=== PATIENT | male | born 2000 | race Caucasian/White ===

== ENCOUNTER 2022-06-24 16:59 | Inpatient (IN) ==
[2022-06-24 18:28] LABS: Basophils # (auto) 0.04 K/uL (0-0.2); Basophils % (auto) 0.7 %; Eosinophils # (auto) 0.28 K/uL (0-0.50); Eosinophils % (auto) 4.8 %; Hematocrit (blood only) 46.7 % (40.1-51.0); Immature Granulocytes # (auto) 0.01 K/uL (0.00-0.02); Immature Granulocytes % (auto) 0.2 %; Lymphocytes # (auto) 2.25 K/uL (1.2-3.4); Lymphocytes % (auto) 38.9 %; Mean Corpuscular Hemoglobin 30.4 pg (25.0-34.0); Mean Corpuscular Hgb Conc 34.3 g/dL (32.0-36.0); Mean Corpuscular Volume 88.6 fL (80.0-100.0); Mean Platelet Volume 8.5 fL (9.4-12.4); Monocytes # (auto) 0.69 K/uL (0.24-0.82); Monocytes % (auto) 11.9 %; Neutrophils # (auto) 2.52 K/uL (1.4-6.5); Neutrophils % (auto) 43.5 %; Platelet Count 284 K/uL (130-400); RDW Coefficient of Variation 12.4 % (11.5-14.5); Red Blood Count 5.27 M/uL (4.63-6.08); White Blood Count 5.79 K/ul (4.8-10.8)
[2022-06-24 18:32] LABS: Appearance Urine Cloudy (Clear); Bacteria Urine Automated Negative (Negative); Bilirubin Urine Negative (Negative); Blood Urine Negative (Negative); Color Urine Yellow; Glucose Urine UA Negative (Negative); Ketones Urine Negative (Negative); Leukocyte Esterase Urine Negative (Negative); Nitrite Urine Negative (Negative); Protein Urine Negative (Negative); RBC Urine Automated 0-4 /hpf (0-4); Specific Gravity Urine 1.015 (1.000-1.030); Urobilinogen Urine Negative (Negative)
--- NOTE | 2022-06-24 18:36 | Emergency Department Note ---
Impression & Plan Suicidal ideation ED Provider Note CHIEF COMPLAINT: [facility] HISTORY OF PRESENT ILLNESS: This 21-year-old male patient presents to the emergency department with complaints of suicidal ideation. The patient states he has been feeling particularly depressed over the last several weeks. He does have a history of bipolar disorder and is treated with lithium and Adderall. He has been working with a therapist through [facility]. He was at an appointment today and expressing worsening suicidal ideation which he states he is "obsessed with." The patient states he has no love of life and no desire to keep living however he does so for his family. He does not feel that he can keep living for others as this is not sustainable. He had great hopes for the semester as he spent the majority of last semester adjusting medications. He thought perhaps he would be more stable and able to enjoy things. He describes himself as able to "enjoy doing nothing" and having to force himself to do anything while on the Adderall. He states he constantly contemplates plans but does not have anything solidified. He does not have immediate access to weapons. He has contemplated jumping off of his apartment [employer], getting hit by car and shooting himself. Guns are secured at his parents home in [place], but he does not have any here at school. REVIEW OF SYSTEMS: A review of systems was performed with positives and pertinent negatives listed in the history of present illness. 10 systems were reviewed and are otherwise negative. ALLERGIES: see below MEDICATIONS: see below PMH: see below SOCIAL HISTORY: see below DDx:Mood disorder, infection, hypoglycemia, electrolyte abnormalities, cardiac sources, intracerebral event, toxicologic, trauma, neurologic, as well as other pathologies. PHYSICAL EXAM: Vital signs reviewed. General: Well-appearing 21-year-old male, in no significant distress. HEENT: No scleral icterus, PERRLA, neck supple. Atraumatic. Cardiovascular: Regular rate and rhythm, no extra sounds. Pulmonary: Clear to auscultation bilaterally, normal work of breathing. Abdomen: Soft, nontender, nondistended, positive bowel sounds. Musculoskeletal: Atraumatic, no peripheral edema. Neurologic: Patient awake alert and oriented x 3, speech is clear Psych: Positive SI with plan, negative HI Skin: Warm, dry, no rash EMERGENCY DEPARTMENT COURSE/MDM: This patient was evaluated and appeared to be in no significant distress. Patient was medically cleared and referred to the mental health disease case manager for psychiatric assessment. The patient is voluntary for admission. Case has been signed out at the change of shift to Dr. Larson pending final disposition. DISPOSITION: Still a patient Past Med/Surg History Medical History Bipolar disorder Social History (Updated 06/24/22 @ 19:04 by Jolanta Dodson MD) Smoking Status: Never smoker current occupational status: student Feels Safe at Home: Yes Allergies Allergies Allergy/AdvReac Type Severity Reaction Status Date / Time Penicillins AdvReac Severe Vomiting Verified 01/14/21 15:16 Home Meds Home Medications Medication Instructions Recorded Confirmed No Known Home Medications 01/14/21 01/14/21 Results & Data (ED) Vital Signs Vital Signs - 24 hr 06/24/22 17:14 06/24/22 16:59 Temperature 36.8 C Temperature Source Temporal Artery Scan Pulse Rate 94 H Respiratory Rate 18 Blood Pressure 146/70 H Blood Pressure [Left Arm] 112/67 Blood Pressure Mean 95 Blood Pressure Mean [Left Arm] 82 Pulse Oximetry 99 Oxygen Delivery Method Room Air Sepsis Recent Fever Within 48 Hours No Sepsis New/Unexplained Change in Mental Status No Sepsis Action Taken by Nursing No Action Required Home Medications Current Medication List: was personally reviewed by me Laboratory Data Attestation: I reviewed the patient's lab results. Result diagrams: 06/24/22 18:00 06/24/22 18:00 Lab Results 06/24/22 06/24/22 06/24/22 Range/Units 18:00 18:00 18:00 WBC 5.79 (4.8-10.8) K/ul RBC 5.27 (4.63-6.08) M/uL Hgb 16.0 (14.0-18.0) g/dl Hct 46.7 (40.1-51.0) % MCV 88.6 (80.0-100.0) fL MCH 30.4 (25.0-34.0) pg MCHC 34.3 (32.0-36.0) g/dL RDW Std Deviation 41.0 (36.4-46.3) fL RDW Coeff of Nikole 12.4 (11.5-14.5) % Plt Count 284 (130-400) K/uL MPV 8.5 L (9.4-12.4) fL Immature Gran % (Auto) 0.2 % Neut % (Auto) 43.5 % Lymph % (Auto) 38.9 % [place] % (Auto) 11.9 % Eos % (Auto) 4.8 % Baso % (Auto) 0.7 % Neut # (Auto) 2.52 (1.4-6.5) K/uL Lymph # (Auto) 2.25 (1.2-3.4) K/uL [place] # (Auto) 0.69 (0.24-0.82) K/uL Eos # (Auto) 0.28 (0-0.50) K/uL Baso # (Auto) 0.04 (0-0.2) K/uL Immature Gran # (Auto) 0.01 (0.00-0.02) K/uL Sodium 138 (136-145) mmol/L Potassium 3.4 L (3.5-5.1) mmol/L Chloride 101 (98-107) mmol/L Carbon Dioxide 30 (21-32) mmol/L Anion Gap 7 (3-11) BUN 9 (6-23) mg/dl Creatinine 0.77 (0.6-1.4) mg/dl Est Cr Clr Drug Dosing 143.2 ml/min Est GFR ( Amer) 149.3 ml/min Est GFR (Non-Af Amer) 128.8 ml/min BUN/Creatinine Ratio 11.7 (10-20) Glucose 82 (70-99(Fasting)) mg/dl Calcium 9.2 (8.5-10.1) mg/dl Total Bilirubin 0.6 (0.2-1.0) mg/dl AST 17 (13-39) U/L ALT 15 (7-52) U/L Alkaline Phosphatase 61 (34-104) U/L Total Protein 7.8 (6.0-8.3) gm/dl Albumin 5.0 (3.4-5.0) gm/dl Globulin 2.8 (2.5-4.0) gm/dl Albumin/Globulin Ratio 1.8 (0.9-2) TSH 1.619 (0.300-4.500) uIu/ml Urine Color Urine Appearance (Clear) Urine pH (4.5-7.5) Ur Specific [place] (1.000-1.030) Urine Protein (Negative) Urine Glucose (UA) (Negative) Urine Ketones (Negative) Urine Blood (Negative) Urine Nitrite (Negative) Urine Bilirubin (Negative) Urine Urobilinogen (Negative) Ur Leukocyte Esterase (Negative) Urine WBC (Auto) (0-5) /hpf Urine RBC (Auto) (0-4) /hpf U Hyaline Cast (Auto) (0-5) /lpf U Epithel Cells (Auto) (0-5) /lpf Urine Bacteria (Auto) (Negative) Salicylates (3.0-30) mg/dl Urine Opiates Screen (Neg) Ur Methadone, Qual (Neg) Acetaminophen (10-30) ug/ml Urine Barbiturates (Neg) Ur Phencyclidine (PCP) (Neg) U Amphetamin/Meth Scrn (Neg) MDMA (Ecstasy) Screen (Neg) U Benzodiazepines Scrn (Neg) Ur Cocaine Metabolite (Neg) U Marijuana (THC) Screen (Neg) Ethyl Alcohol mg/dL (<10.0) mg/dl SARS-CoV-2, RNA, NAAT (NEGATIVE) 06/24/22 06/24/22 06/24/22 Range/Units 18:00 18:00 18:16 WBC (4.8-10.8) K/ul RBC (4.63-6.08) M/uL Hgb (14.0-18.0) g/dl Hct (40.1-51.0) % MCV (80.0-100.0) fL MCH (25.0-34.0) pg MCHC (32.0-36.0) g/dL RDW Std Deviation (36.4-46.3) fL RDW Coeff of Nikole (11.5-14.5) % Plt Count (130-400) K/uL MPV (9.4-12.4) fL Immature Gran % (Auto) % Neut % (Auto) % Lymph % (Auto) % [place] % (Auto) % Eos % (Auto) % Baso % (Auto) % Neut # (Auto) (1.4-6.5) K/uL Lymph # (Auto) (1.2-3.4) K/uL [place] # (Auto) (0.24-0.82) K/uL Eos # (Auto) (0-0.50) K/uL Baso # (Auto) (0-0.2) K/uL Immature Gran # (Auto) (0.00-0.02) K/uL Sodium (136-145) mmol/L Potassium (3.5-5.1) mmol/L Chloride (98-107) mmol/L Carbon Dioxide (21-32) mmol/L Anion Gap (3-11) BUN (6-23) mg/dl Creatinine (0.6-1.4) mg/dl Est Cr Clr Drug Dosing ml/min Est GFR ( Amer) ml/min Est GFR (Non-Af Amer) ml/min BUN/Creatinine Ratio (10-20) Glucose (70-99(Fasting)) mg/dl Calcium (8.5-10.1) mg/dl Total Bilirubin (0.2-1.0) mg/dl AST (13-39) U/L ALT (7-52) U/L Alkaline Phosphatase (34-104) U/L Total Protein (6.0-8.3) gm/dl Albumin (3.4-5.0) gm/dl Globulin (2.5-4.0) gm/dl Albumin/Globulin Ratio (0.9-2) TSH (0.300-4.500) uIu/ml Urine Color Urine Appearance (Clear) Urine pH (4.5-7.5) Ur Specific [place] (1.000-1.030) Urine Protein (Negative) Urine Glucose (UA) (Negative) Urine Ketones (Negative) Urine Blood (Negative) Urine Nitrite (Negative) Urine Bilirubin (Negative) Urine Urobilinogen (Negative) Ur Leukocyte Esterase (Negative) Urine WBC (Auto) (0-5) /hpf Urine RBC (Auto) (0-4) /hpf U Hyaline Cast (Auto) (0-5) /lpf U Epithel Cells (Auto) (0-5) /lpf Urine Bacteria (Auto) (Negative) Salicylates < 3.0 L (3.0-30) mg/dl Urine Opiates Screen (Neg) Ur Methadone, Qual (Neg) Acetaminophen < 3 L (10-30) ug/ml Urine Barbiturates (Neg) Ur Phencyclidine (PCP) (Neg) U Amphetamin/Meth Scrn (Neg) MDMA (Ecstasy) Screen (Neg) U Benzodiazepines Scrn (Neg) Ur Cocaine Metabolite (Neg) U Marijuana (THC) Screen (Neg) Ethyl Alcohol mg/dL < 10.0 (<10.0) mg/dl SARS-CoV-2, RNA, NAAT NEGATIVE (NEGATIVE) 06/24/22 06/24/22 Range/Units 18:16 18:16 WBC (4.8-10.8) K/ul RBC (4.63-6.08) M/uL Hgb (14.0-18.0) g/dl Hct (40.1-51.0) % MCV (80.0-100.0) fL MCH (25.0-34.0) pg MCHC (32.0-36.0) g/dL RDW Std Deviation (36.4-46.3) fL RDW Coeff of Nikole (11.5-14.5) % Plt Count (130-400) K/uL MPV (9.4-12.4) fL Immature Gran % (Auto) % Neut % (Auto) % Lymph % (Auto) % [place] % (Auto) % Eos % (Auto) % Baso % (Auto) % Neut # (Auto) (1.4-6.5) K/uL Lymph # (Auto) (1.2-3.4) K/uL [place] # (Auto) (0.24-0.82) K/uL Eos # (Auto) (0-0.50) K/uL Baso # (Auto) (0-0.2) K/uL Immature Gran # (Auto) (0.00-0.02) K/uL Sodium (136-145) mmol/L Potassium (3.5-5.1) mmol/L Chloride (98-107) mmol/L Carbon Dioxide (21-32) mmol/L Anion Gap (3-11) BUN (6-23) mg/dl Creatinine (0.6-1.4) mg/dl Est Cr Clr Drug Dosing ml/min Est GFR ( Amer) ml/min Est GFR (Non-Af Amer) ml/min BUN/Creatinine Ratio (10-20) Glucose (70-99(Fasting)) mg/dl Calcium (8.5-10.1) mg/dl Total Bilirubin (0.2-1.0) mg/dl AST (13-39) U/L ALT (7-52) U/L Alkaline Phosphatase (34-104) U/L Total Protein (6.0-8.3) gm/dl Albumin (3.4-5.0) gm/dl Globulin (2.5-4.0) gm/dl Albumin/Globulin Ratio (0.9-2) TSH (0.300-4.500) uIu/ml Urine Color Yellow Urine Appearance Cloudy A (Clear) Urine pH 8.0 H (4.5-7.5) Ur Specific [place] 1.015 (1.000-1.030) Urine Protein Negative (Negative) Urine Glucose (UA) Negative (Negative) Urine Ketones Negative (Negative) Urine Blood Negative (Negative) Urine Nitrite Negative (Negative) Urine Bilirubin Negative (Negative) Urine Urobilinogen Negative (Negative) Ur Leukocyte Esterase Negative (Negative) Urine WBC (Auto) 1-5 (0-5) /hpf Urine RBC (Auto) 0-4 (0-4) /hpf U Hyaline Cast (Auto) 1-5 (0-5) /lpf U Epithel Cells (Auto) 5-10 H (0-5) /lpf Urine Bacteria (Auto) Negative (Negative) Salicylates (3.0-30) mg/dl Urine Opiates Screen Neg (Neg) Ur Methadone, Qual Neg (Neg) Acetaminophen (10-30) ug/ml Urine Barbiturates Neg (Neg) Ur Phencyclidine (PCP) Neg (Neg) U Amphetamin/Meth Scrn Pos H (Neg) MDMA (Ecstasy) Screen Neg (Neg) U Benzodiazepines Scrn Neg (Neg) Ur Cocaine Metabolite Neg (Neg) U Marijuana (THC) Screen Pos H (Neg) Ethyl Alcohol mg/dL (<10.0) mg/dl SARS-CoV-2, RNA, NAAT (NEGATIVE) Blood Pressure Blood Pressure Findings: Elevated blood pressure Blood Pressure Disposition: elevated BP felt to be situational Discharge Plan Visit Data Chief Complaint: Mental Health Evaluation Stated Complaint: VOLUNTARY MENTAL HEALTH EVAL ED Provider: Kip Larson Discharge Problem: Suicidal ideation Forms Stand Alone Forms: [facility], Suicide Prevention Resources, Virtual Emergency Department, Important Visit Information Prescriptions Prescriptions: No Action No Known Home Medications Referrals Referrals: [facility] [Primary Care Provider] -
[2022-06-24 18:55] LABS: Acetaminophen < 3 ug/ml (10-30); Albumin Globulin Ratio 1.8 (0.9-2); BUN Creatinine Ratio 11.7 (10-20); Bilirubin,Total 0.6 mg/dl (0.2-1.0); Calcium 9.2 mg/dl (8.5-10.1); Creatinine Clr Calc Pharmacy 143.2 ml/min; Est GFR (African American) 149.3 ml/min; Est GFR (Non-African American) 128.8 ml/min; Globulin 2.8 gm/dl (2.5-4.0); Potassium 3.4 mmol/L (3.5-5.1); Salicylate < 3.0 mg/dl (3.0-30); Total Protein 7.8 gm/dl (6.0-8.3)
[2022-06-24 19:22] LABS: Amphetamines+Metham, Urine Pos (Neg); Barbiturates, Urine Neg (Neg); Benzodiazepine, Urine Neg (Neg); Cocaine, Urine Neg (Neg); MDMA (Ecstacy), Urine Neg (Neg); Methadone, Urine Neg (Neg); Opiate, Urine Neg (Neg); Phencyclidine, Urine Neg (Neg)
--- NOTE | 2022-06-24 22:34 | Emergency Department Note ---
ED Visit Note Patient was signed out to me by Dr. Dodson at change of shift, presented with suicidal ideations, currently under voluntary/201. Patient was assessed for placement at [facility] and was accepted. 201 forms were signed and the patient was transferred to [facility] in stable condition for inpatient psychiatric care. Patient remained otherwise stable while here in the ED under my care and did not require any acute interventions on my part. .
[2022-06-24] MEDS ORDERED: ALUMINUM/MAGNESIUM SUSP 30 ML UDC PO PRN (23:21)
[2022-06-24] MEDS ORDERED: SODIUM CHLORIDE 0.65% NA SOLN 45 ML (OCEAN) PRN (23:21)
[2022-06-24] MEDS ORDERED: MAGNESIUM HYDROXIDE SUSP 30 ML UDC PO PRN (23:21)
[2022-06-24] MEDS ORDERED: hydrOXYzine HCl 25 MG TAB PO PRN ×2 (23:21)
[2022-06-24] MEDS ORDERED: BISMUTH SUBSALICYLATE LIQD 236 ML PO PRN (23:21)
[2022-06-24] MEDS ORDERED: ACETAMINOPHEN 325 MG TAB PO PRN (23:21)
[2022-06-25] MEDS ORDERED: LITHIUM CARBONATE SLOW REL 300 MG TAB PO SCH (00:33)
[2022-06-25] MEDS ORDERED: LITHIUM CARBONATE 450 MG TABCR PO SCH (00:33)
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
[2022-06-25] MEDS ORDERED: AMPHETAMINE ASP/SULF/DEXTRAMPH ER 20 MG CAP PO SCH (10:15)
[2022-06-25] MEDS: AMPHETAMINE ASP/SULF/DEXTRAMPH 10 MG TAB PO SCH (13:53)
[2022-06-25] MEDS: NICOTINE POLACRILEX 2 MG GUM MT PRN (15:20)
[2022-06-25] MEDS: LITHIUM CARBONATE SLOW REL 300 MG TAB PO SCH (17:47)
[2022-06-25] MEDS: LITHIUM CARBONATE 450 MG TABCR PO SCH (17:48)
[2022-06-25] MEDS: cloNIDine HCL 0.1 MG TAB PO SCH (21:34)
--- NOTE | 2022-06-26 08:59 | Psychiatric Progress Note ---
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 Diagnostically consistent with bipolar depression versus major depressive disorder versus substance-induced component from cannabis use. The patient is deemed unstable and requires psychiatric hospitalization for diagnostic clarification, safety and stabilization, medication management and development of further coping skills. Discussed medication treatment options in detail again including augmentation with SSRI or SNRI versus antipsychotic augmentation for bipolar depression versus trazodone for insomnia. Discussed risks, benefits and alternatives. He would like to start Effexor and consents to this. Reviewed side effects including but not limited to: GI, SELF, sexual side effects, elevated BP/HR, and counseled on black box warning of potential for emergence of or increased SI and need to let staff know should this occur or should they feel unsafe. Also discussed importance of seeking emergency care following discharge if this side effect occurs in the future. 06/26/22: Remains severely depressed with ongoing SI and no engagement today in unit groups or activities and declined breakfast. Li level reviewed and 0.7 and within good range to address bipolar depression. Motivation to engage with therapeutic activities to help with mood and cognitive distortions is limited. (1) Bipolar depression: (2) Suicidal ideation: (3) ADHD: Plan 06/26/22: Start Effexor 37.5mg qd tomorrow. 06/25/22: The patient was admitted to the [facility] ([facility]) on q15 min checks (behavioral with suicide precautions) for safety. The patient will participate in group, recreational, and milieu therapies and will be offered additional individual and family sessions as clinically appropriate. -start clonidine 0.1 HS -Adderall XR 15mg unavailable on hospital formulary and he can't have this brought in so prefers and consents to switch to Adderall IR 10mg qAM and 5 mg qafternoon. -Continue Interior ER 750 mg hs -Li level in the AM Inventory Assets Strengths: willing to get treatment, outpatient providers Needs: safety and stabilization, medication adjustment, additional coping skills, increased outpatient services Suicide Risk Level Suicide Risk Level: High-Moderate (q15 min suicide checks) (High-Moderate due to severe depression with SI with plan prior to admission but feels safe in the hospital, able to safety contract and agrees to let nursing/staff know should they develop plan, intent or feel unable to remain safe. 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 Chief Complaint "Last night the suicidal thoughts were pretty bad". Review of Systems Sleep Information Total Hours of Sleep: 5.5 Meal Information Percent Meal Consumed - Breakfast: 100 Percent Meal Consumed - Lunch: 0 Percent Meal Consumed - Dinner: 100 Subjective Subjective Patient was seen & assessed and interval progress reviewed with treatment team nursing and social work. Requested and took Vistaril prn to help with sleep. Isolative to his room all day but socialized and attended group yesterday evening. Today stayed in bed all day until 12pm then briefly came out to eat his lunch. Otherwise isolative to his room. Feels his slept a little bit better last night but still "not good". Feels tired today. [place] that clonidine caused a brief increase in anxiety then improved, he's unsure if it helped with sleep. He wants to try it again tonight. He considered other medication options more and wants to start Effexor tomorrow. Continues to have SI. Physical Exam Psychiatric Orientation: alert and oriented x 3 Apperance: appropriately dressed and appropriately groomed Eye Contact: + fair eye contact Motor Behavior: no abnormal motor movements Speech: normal rate/rhythm/volume of speech Affect: + depressed affect and + flat affect Mood: + depressed mood and + anxious mood Thought Process: goal directed thought process and + concrete thought process Thought Content: reality based without delusions Suicidal Thoughts: denies suicidal plan (not for in the hospital) and denies suicidal intent; + reports suicidal thoughts Homicidal Thoughts: denies homicidal thoughts Hallucinations: no auditory hallucinations and no visual hallucinations Cognition: recent memory grossly intact, remote memory grossly intact, attention grossly intact and language grossly intact Estimated Intelligence: consistent with education level Insight: + limited insight Judgement: + limited judgement Vital Signs (Past 24 Hours) Last Vital Signs Temp 37.3 C 06/26/22 06:00 Pulse 81 06/26/22 06:43 Resp 16 06/26/22 06:00 BP 74/61 L 06/26/22 06:43 Pulse Ox 99 06/26/22 06:00 O2 Del Method 06/26/22 06:00 Results & Data ([facility]) Laboratory Results Laboratory Results - last 24 hr 06/26/22 06:05 Interior 0.7 Current Inpatient Medications Current Inpatient Medications: Current Inpatient Medications Acetaminophen (Acetaminophen 325 Mg Tab) 650 mg PO Q4H PRN PRN Reason: Headache or Minor Fever Stop: 07/24/22 23:20 Al Hydrox/Mg Hydrox/Simethicone (Aluminum/Magnesium Susp 30 Ml Udc) 30 ml PO Q4H PRN PRN Reason: GI Upset Stop: 07/24/22 23:20 Amphetamine/Dextroamphetamine (Amphetamine Asp/Sulf/Dextramph 10 Mg Tab) 10 mg PO DAILY [place] Stop: 07/10/22 08:59 Amphetamine/Dextroamphetamine (Amphetamine Asp/Sulf/Dextramph 10 Mg Tab) 5 mg PO DAILY@1400 [place] Stop: 07/09/22 13:59 Last Admin: 06/25/22 13:53 Dose: 5 mg Bismuth Subsalicylate (Bismuth Subsalicylate Liqd 236 Ml) 15 ml PO PRN PRN PRN Reason: Loose Stool Stop: 07/24/22 23:20 Clonidine HCl (Clonidine Hcl 0.1 Mg Tab) 0.1 mg PO HS [place] Stop: 07/25/22 21:59 Last Admin: 06/25/22 21:34 Dose: 0.1 mg Hydroxyzine HCl (Hydroxyzine Hcl 25 Mg Tab) 50 mg PO HSZ PRN PRN Reason: Insomnia Stop: 07/24/22 23:20 Last Admin: 06/25/22 23:25 Dose: 50 mg Hydroxyzine HCl (Hydroxyzine Hcl 25 Mg Tab) 25 mg PO Q4H PRN PRN Reason: Anxiety Stop: 07/24/22 23:20 Interior Carbonate (Interior Carbonate 450 Mg Tabcr) 450 mg PO DAILYBD [place] Stop: 07/25/22 17:14 Last Admin: 06/25/22 17:48 Dose: 450 mg Interior Carbonate (Interior Carbonate Slow Rel 300 Mg Tab) 300 mg PO DAILYBD [place] Stop: 07/25/22 17:14 Last Admin: 06/25/22 17:47 Dose: 300 mg Magnesium Hydroxide (Magnesium Hydroxide Susp 30 Ml Udc) 30 ml PO DAILY PRN PRN Reason: Constipation Stop: 07/24/22 23:20 Nicotine Polacrilex (Nicotine Polacrilex 2 Mg Gum) 1 piece MT PRN PRN PRN Reason: Nicotine Withdrawal Stop: 07/24/22 23:20 Last Admin: 06/25/22 15:20 Dose: 1 piece Sodium Chloride (Sodium Chloride 0.65% Na Soln 45 Ml ([facility])) 1 - 2 sprays NA PRN PRN PRN Reason: Nasal Dryness/Congestion Stop: 07/24/22 23:20 Mental Health & Subst Abuse Tx Therapist Name of Therapist: MARY
[2022-06-26] MEDS: AMPHETAMINE ASP/SULF/DEXTRAMPH 10 MG TAB PO SCH ×2 (11:22→13:51)
[2022-06-26] MEDS: NICOTINE POLACRILEX 2 MG GUM MT PRN ×2 (13:53→17:59)
[2022-06-26] MEDS: LITHIUM CARBONATE 450 MG TABCR PO SCH (17:46)
[2022-06-26] MEDS: LITHIUM CARBONATE SLOW REL 300 MG TAB PO SCH (17:46)
[2022-06-26] MEDS: cloNIDine HCL 0.1 MG TAB PO SCH (21:45)
[2022-06-27 01:28] LABS: Amphetamine Urine, Confirm 1440 ng/mL (<250); Marijuana Quant, GCMS Urine 1081 ng/mL (<5); Methamphetamine, Ur Confirm NEGATIVE ng/mL (<250)
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
[2022-06-27] MEDS: VENLAFAXINE HCL XR 37.5 MG CAPXR PO SCH (09:29)
[2022-06-27] MEDS: AMPHETAMINE ASP/SULF/DEXTRAMPH 10 MG TAB PO SCH ×2 (09:29→14:10)
[2022-06-27] MEDS: LITHIUM CARBONATE 450 MG TABCR PO SCH (17:15)
[2022-06-27] MEDS: LITHIUM CARBONATE SLOW REL 300 MG TAB PO SCH (17:15)
[2022-06-27] MEDS: cloNIDine HCL 0.1 MG TAB PO SCH (21:05)
[2022-06-27] MEDS: MELATONIN 3 MG TAB PO SCH (21:05)
[2022-06-27] MEDS: NICOTINE POLACRILEX 2 MG GUM MT PRN (21:07)
--- NOTE | 2022-06-28 08:47 | Psychiatric Progress Note ---
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 Diagnostically consistent with bipolar depression versus major depressive disorder versus substance-induced component from cannabis use. The patient is deemed unstable and requires psychiatric hospitalization for diagnostic clarification, safety and stabilization, medication management and development of further coping skills. 06/28/22: Depression improving a bit but still times with more severe moments of depression. A lot of dizziness today, seems most likely due to clonidine as BP was low this morning. Will discontinue this. Given dizziness will not titrate Effexor further yet. He consents to starting trazodone instead for insomnia, reviewed risks/benefits/alternatives and side effects including but not limited to sedation, priapism, increased appetite. Interestingly was not forthcoming about recent teletherapy with provider in [facility], remains ambivalent about outpatient IOP for CBT for depression and anxiety. Ongoing motivational interviewing regarding this. (1) Bipolar depression: (2) Suicidal ideation: (3) ADHD: Plan 06/28/22: Discontinue clonidine. Start trazodone 50mg qhs. 06/27/22: Continue with [place], Effexor XR and clonidine. Start melatonin 6mg hs. 06/26/22: Start Effexor 37.5mg qd tomorrow. 06/25/22: The patient was admitted to the [facility] ([facility] mental health unit) on q15 min checks (behavioral with suicide precautions) for safety. The patient will participate in group, recreational, and milieu therapies and will be offered additional individual and family sessions as clinically appropriate. -start clonidine 0.1 HS -Adderall XR 15mg unavailable on hospital formulary and he can't have this brought in so prefers and consents to switch to Adderall IR 10mg qAM and 5 mg qafternoon. -Continue [place] ER 750 mg hs -Li level in the AM Inventory Assets Strengths: willing to get treatment, outpatient providers Needs: safety and stabilization, medication adjustment, additional coping skills, increased outpatient services Suicide Risk Level Suicide Risk Level: Moderate (q15 min suicide checks) (High-Moderate due to severe depression with SI with plan prior to admission but mood improving a bit feels safe in the hospital, able to safety contract and agrees to let nursing/staff know should they develop plan, intent or feel unable to remain safe. 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 Chief Complaint "I was very depressed before lunch but then I felt better after I ate". Review of Systems Sleep Information Total Hours of Sleep: 5.5 Meal Information Percent Meal Consumed - Breakfast: 100 Percent Meal Consumed - Lunch: 100 Percent Meal Consumed - Dinner: 100 Subjective Subjective Patient was seen & assessed and interval progress reviewed with treatment team nursing and social work. Signed limited HARSHAL for parents last night. Anxious last night. Didn't sleep well. This morning felt dizzy and lightheaded which continued to mid-day. [place] depressed before lunch but improved after eating. No other medication side effects noticed today. Discussed options for family meeting, he's now more willing to involve his parents. Still unsure about doing an IOP or outpatient therapy as apparently only saw [facility] therapy for emergency session and stopped seeing his previous telehealth therapist in [facility]. Not interested in referrals for local therapist, prefers to look on his own for someone near [facility]. Physical Exam Psychiatric Orientation: alert and oriented x 3 Apperance: appropriately dressed and appropriately groomed Eye Contact: + fair eye contact Motor Behavior: no abnormal motor movements Speech: normal rate/rhythm/volume of speech Affect: + depressed affect and + flat affect Mood: + depressed mood and + anxious mood Thought Process: + concrete thought process Thought Content: reality based without delusions Suicidal Thoughts: denies suicidal plan and denies suicidal intent; + reports suicidal thoughts (intermittent) Homicidal Thoughts: denies homicidal thoughts Hallucinations: no auditory hallucinations and no visual hallucinations Cognition: recent memory grossly intact, remote memory grossly intact, attention grossly intact and language grossly intact Estimated Intelligence: consistent with education level Insight: + limited insight Judgement: + limited judgement Vital Signs (Past 24 Hours) Last Vital Signs Temp 36.6 C 06/28/22 06:31 Pulse 83 06/28/22 06:32 Resp 16 06/28/22 06:31 BP 99/63 L 06/28/22 06:32 Pulse Ox 99 06/26/22 06:00 O2 Del Method 06/26/22 06:00 Results & Data ([facility]) Current Inpatient Medications Current Inpatient Medications: Current Inpatient Medications Acetaminophen (Acetaminophen 325 Mg Tab) 650 mg PO Q4H PRN PRN Reason: Headache or Minor Fever Stop: 07/24/22 23:20 Al Hydrox/Mg Hydrox/Simethicone (Aluminum/Magnesium Susp 30 Ml Udc) 30 ml PO Q4H PRN PRN Reason: GI Upset Stop: 07/24/22 23:20 Amphetamine/Dextroamphetamine (Amphetamine Asp/Sulf/Dextramph 10 Mg Tab) 10 mg PO DAILY [place] Stop: 07/10/22 08:59 Last Admin: 06/27/22 09:29 Dose: 10 mg Amphetamine/Dextroamphetamine (Amphetamine Asp/Sulf/Dextramph 10 Mg Tab) 5 mg PO DAILY@1400 [place] Stop: 07/09/22 13:59 Last Admin: 06/27/22 14:10 Dose: 5 mg Bismuth Subsalicylate (Bismuth Subsalicylate Liqd 236 Ml) 15 ml PO PRN PRN PRN Reason: Loose Stool Stop: 07/24/22 23:20 Clonidine HCl (Clonidine Hcl 0.1 Mg Tab) 0.1 mg PO HS [place] Stop: 07/25/22 21:59 Last Admin: 06/27/22 21:05 Dose: 0.1 mg Hydroxyzine HCl (Hydroxyzine Hcl 25 Mg Tab) 50 mg PO HSZ PRN PRN Reason: Insomnia Stop: 07/24/22 23:20 Last Admin: 06/25/22 23:25 Dose: 50 mg Hydroxyzine HCl (Hydroxyzine Hcl 25 Mg Tab) 25 mg PO Q4H PRN PRN Reason: Anxiety Stop: 07/24/22 23:20 [place] Carbonate ([place] Carbonate 450 Mg Tabcr) 450 mg PO DAILYBD [place] Stop: 01/09/23 17:14 Last Admin: 06/27/22 17:15 Dose: 450 mg [place] Carbonate ([place] Carbonate Slow Rel 300 Mg Tab) 300 mg PO DAILYBD [place] Stop: 07/25/22 17:14 Last Admin: 06/27/22 17:15 Dose: 300 mg Magnesium Hydroxide (Magnesium Hydroxide Susp 30 Ml Udc) 30 ml PO DAILY PRN PRN Reason: Constipation Stop: 07/24/22 23:20 Melatonin (Melatonin 3 Mg Tab) 6 mg PO HS [place] Stop: 07/27/22 21:59 Last Admin: 06/27/22 21:05 Dose: 6 mg Nicotine Polacrilex (Nicotine Polacrilex 2 Mg Gum) 1 piece MT PRN PRN PRN Reason: Nicotine Withdrawal Stop: 07/24/22 23:20 Last Admin: 06/27/22 21:07 Dose: 1 piece Sodium Chloride (Sodium Chloride 0.65% Na Soln 45 Ml ([place])) 1 - 2 sprays NA PRN PRN PRN Reason: Nasal Dryness/Congestion Stop: 07/24/22 23:20 Venlafaxine HCl (Venlafaxine Hcl Xr 37.5 Mg Capxr) 37.5 mg PO QAM [place] Stop: 07/27/22 08:59 Last Admin: 06/27/22 09:29 Dose: 37.5 mg Mental Health & Subst Abuse Tx Psychiatrist Name of Psychiatrist: REAL Salinas Psychiatrist's Date of Appointment with Psychiatrist: 07/04/22 Time of Appointment with Psychiatrist: 2pm Psychiatric Appointment Comment: Zoom link will be sent to [employer] email Therapist Name of Therapist: REAL Herron (one-time post hospital follow-up) Therapist's Date of Therapist Appointment: 07/05/22 Time of Therapist Appointment: 3pm Therapy Appointment Comment: Zoom link will be sent to [employer] email Post Discharge Appointments Primary Care Physician Name Of Family Doctor: [facility] Primary Care Time of Appointment with PCP: please follow up as needed Provider Appointment Comment: [facility]
[2022-06-28] MEDS: VENLAFAXINE HCL XR 37.5 MG CAPXR PO SCH (09:50)
[2022-06-28] MEDS: AMPHETAMINE ASP/SULF/DEXTRAMPH 10 MG TAB PO SCH ×2 (09:50→14:40)
[2022-06-28] MEDS: LITHIUM CARBONATE 450 MG TABCR PO SCH (17:34)
[2022-06-28] MEDS: LITHIUM CARBONATE SLOW REL 300 MG TAB PO SCH (17:34)
[2022-06-28] MEDS: NICOTINE POLACRILEX 2 MG GUM MT PRN (18:39)
[2022-06-28] MEDS: MELATONIN 3 MG TAB PO SCH (21:47)
[2022-06-28] MEDS: traZODone HCL 50 MG TAB PO SCH (21:47)
--- NOTE | 2022-06-29 08:49 | Psychiatric Progress Note ---
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 Diagnostically consistent with bipolar depression versus major depressive disorder versus substance-induced component from cannabis use. The patient is deemed unstable and requires psychiatric hospitalization for diagnostic clarification, safety and stabilization, medication management and development of further coping skills. 06/29/22: Mood improving and no further medication side effects since discontinuing the clonidine. Consents to titration of Effexor XR. Likes the trazodone and it helped with sleep last night. MNPR due to exposure to Influenza A (1) Bipolar depression: (2) Suicidal ideation: (3) ADHD: Plan 06/29/22: Family meeting held. Increase venlafaxine ER to 75mg qd. Continue with Zellwood and trazodone and Adderall. 06/28/22: Discontinue clonidine. Start trazodone 50mg qhs. 06/27/22: Continue with [place], Effexor XR and clonidine. Start melatonin 6mg hs. 06/26/22: Start Effexor 37.5mg qd tomorrow. 06/25/22: The patient was admitted to the [facility] ([facility] inpatient mental health unit) on q15 min checks (behavioral with suicide precautions) for safety. The patient will participate in group, recreational, and milieu therapies and will be offered additional individual and family sessions as clinically appropriate. -start clonidine 0.1 HS -Adderall XR 15mg unavailable on hospital formulary and he can't have this brought in so prefers and consents to switch to Adderall IR 10mg qAM and 5 mg qafternoon. -Continue Zellwood ER 750 mg hs -Li level in the AM Inventory Assets Strengths: willing to get treatment, outpatient providers Needs: safety and stabilization, medication adjustment, additional coping skills, increased outpatient services Suicide Risk Level Suicide Risk Level: Moderate (q15 min suicide checks) (severe depression with SI with plan prior to admission but mood improving a bit feels safe in the hospital, able to safety contract and agrees to let nursing/staff know should they develop plan, intent or feel unable to remain safe. 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 Chief Complaint "I'm feeling pretty good". Review of Systems Sleep Information Total Hours of Sleep: 7.25 Meal Information Percent Meal Consumed - Breakfast: 25 Percent Meal Consumed - Lunch: 90 Percent Meal Consumed - Dinner: 90 Subjective Subjective Patient was seen & assessed and interval progress reviewed with treatment team nursing and social work. Engaging in groups and socializing with peers. Had family meeting with his parents. No further dizziness. No side effects from the medications. Would like to increase Effexor XR dose. Slept "like a rock" with trazodone and no side effects. Had some brief passive SI this morning but none since then. Physical Exam Psychiatric Orientation: alert and oriented x 3 Apperance: appropriately dressed and appropriately groomed Eye Contact: good eye contact Motor Behavior: no abnormal motor movements Speech: normal rate/rhythm/volume of speech Affect: + depressed affect Mood: + depressed mood Thought Process: + concrete thought process Thought Content: reality based without delusions Suicidal Thoughts: denies suicidal plan and denies suicidal intent; + reports suicidal thoughts (passive this morning) Homicidal Thoughts: denies homicidal thoughts Hallucinations: no auditory hallucinations and no visual hallucinations Cognition: recent memory grossly intact, remote memory grossly intact, attention grossly intact and language grossly intact Estimated Intelligence: consistent with education level Insight: + limited insight Judgement: + limited judgement Vital Signs (Past 24 Hours) Last Vital Signs Temp 36.6 C 06/29/22 06:35 Pulse 71 06/29/22 06:36 Resp 16 06/29/22 06:35 BP 101/63 06/29/22 06:36 Pulse Ox 99 06/26/22 06:00 O2 Del Method 06/26/22 06:00 Results & Data ([facility]) Current Inpatient Medications Current Inpatient Medications: Current Inpatient Medications Acetaminophen (Acetaminophen 325 Mg Tab) 650 mg PO Q4H PRN PRN Reason: Headache or Minor Fever Stop: 07/24/22 23:20 Al Hydrox/Mg Hydrox/Simethicone (Aluminum/Magnesium Susp 30 Ml Udc) 30 ml PO Q4H PRN PRN Reason: GI Upset Stop: 07/24/22 23:20 Amphetamine/Dextroamphetamine (Amphetamine Asp/Sulf/Dextramph 10 Mg Tab) 10 mg PO DAILY [place] Stop: 07/10/22 08:59 Last Admin: 06/28/22 09:50 Dose: 10 mg Amphetamine/Dextroamphetamine (Amphetamine Asp/Sulf/Dextramph 10 Mg Tab) 5 mg PO DAILY@1400 [place] Stop: 07/09/22 13:59 Last Admin: 06/28/22 14:40 Dose: 5 mg Bismuth Subsalicylate (Bismuth Subsalicylate Liqd 236 Ml) 15 ml PO PRN PRN PRN Reason: Loose Stool Stop: 07/24/22 23:20 Hydroxyzine HCl (Hydroxyzine Hcl 25 Mg Tab) 50 mg PO HSZ PRN PRN Reason: Insomnia Stop: 07/24/22 23:20 Last Admin: 06/25/22 23:25 Dose: 50 mg Hydroxyzine HCl (Hydroxyzine Hcl 25 Mg Tab) 25 mg PO Q4H PRN PRN Reason: Anxiety Stop: 07/24/22 23:20 Zellwood Carbonate (Zellwood Carbonate 450 Mg Tabcr) 450 mg PO DAILYBD [place] Stop: 07/25/22 17:14 Last Admin: 06/28/22 17:34 Dose: 450 mg Zellwood Carbonate (Zellwood Carbonate Slow Rel 300 Mg Tab) 300 mg PO DAILYBD [place] Stop: 07/25/22 17:14 Last Admin: 06/28/22 17:34 Dose: 300 mg Magnesium Hydroxide (Magnesium Hydroxide Susp 30 Ml Udc) 30 ml PO DAILY PRN PRN Reason: Constipation Stop: 07/24/22 23:20 Melatonin (Melatonin 3 Mg Tab) 6 mg PO HS [place] Stop: 07/27/22 21:59 Last Admin: 06/28/22 21:47 Dose: 6 mg Nicotine Polacrilex (Nicotine Polacrilex 2 Mg Gum) 1 piece MT PRN PRN PRN Reason: Nicotine Withdrawal Stop: 07/24/22 23:20 Last Admin: 06/28/22 18:39 Dose: 1 piece Sodium Chloride (Sodium Chloride 0.65% Na Soln 45 Ml ([place])) 1 - 2 sprays NA PRN PRN PRN Reason: Nasal Dryness/Congestion Stop: 07/24/22 23:20 Trazodone HCl (Trazodone Hcl 50 Mg Tab) 50 mg PO HS [place] Stop: 07/28/22 21:59 Last Admin: 06/28/22 21:47 Dose: 50 mg Venlafaxine HCl (Venlafaxine Hcl Xr 37.5 Mg Capxr) 37.5 mg PO QAM [place] Stop: 07/27/22 08:59 Last Admin: 06/28/22 09:50 Dose: 37.5 mg Mental Health & Subst Abuse Tx Psychiatrist Name of Psychiatrist: [facility] Psychiatrist's Date of Appointment with Psychiatrist: 07/04/22 Time of Appointment with Psychiatrist: 2pm Psychiatric Appointment Comment: Zoom link will be sent to [employer] email Therapist Name of Therapist: REAL [facility] (one-time post hospital follow-up) Therapist's Date of Therapist Appointment: 07/05/22 Time of Therapist Appointment: 3pm Therapy Appointment Comment: Zoom link will be sent to [employer] email Post Discharge Appointments Primary Care Physician Name Of Family Doctor: [facility] Primary Care Time of Appointment with PCP: please follow up as needed Provider Appointment Comment: [facility] [place]
[2022-06-29] MEDS: AMPHETAMINE ASP/SULF/DEXTRAMPH 10 MG TAB PO SCH ×2 (09:50→13:53)
[2022-06-29] MEDS: VENLAFAXINE HCL XR 37.5 MG CAPXR PO SCH (09:50)
[2022-06-29] MEDS: LITHIUM CARBONATE 450 MG TABCR PO SCH (17:23)
[2022-06-29] MEDS: LITHIUM CARBONATE SLOW REL 300 MG TAB PO SCH (17:44)
[2022-06-29] MEDS: NICOTINE POLACRILEX 2 MG GUM MT PRN (18:05)
[2022-06-29] MEDS: traZODone HCL 50 MG TAB PO SCH (21:29)
[2022-06-29] MEDS: MELATONIN 3 MG TAB PO SCH (21:30)
[2022-06-30] MEDS ORDERED: VENLAFAXINE HCL XR 75 MG CAPXR PO SCH (09:00)
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
[2022-06-30] MEDS: AMPHETAMINE ASP/SULF/DEXTRAMPH 10 MG TAB PO SCH (09:11)
== END 2022-06-30 10:15 | disposition home or self-care (01) | DRG 885 ==
LOC: ED 16:59 → 3S 21:23
DX: F90.9 Attention-deficit hyperactivity disorder, unspecified type; F31.81 Bipolar II disorder; Z88.0 Allergy status to penicillin; Z79.899 Other long term (current) drug therapy; R45.851 Suicidal ideations; G47.00 Insomnia, unspecified; F32.A Depression, unspecified; F17.290 Nicotine dependence, other tobacco product, uncomplicated; Z88.8 Allergy status to other drugs, medicaments and biological substances; Z81.8 Family history of other mental and behavioral disorders